=== PATIENT | male | born 1980 | race Caucasian/White ===

== ENCOUNTER 2016-10-21 09:26 | Inpatient (IN) | payer OTHER ==
[~2016-10-21] VITALS: Ht 175.3 cm; Wt 110.5 kg
[2016-10-21] MEDS ORDERED: SOD CHLORIDE 0.9% 1,000 ML IV SCH (12:24)
[2016-10-21 12:25] VITALS: BP 169/97; PULSE 98; RESP 18
[2016-10-21] MEDS ORDERED: NACL 0.9% 3 ML SYG IV SCH (12:30)
[2016-10-21] MEDS ORDERED: ONDANSETRON 4 MG INJ IV PRN ×2 (12:30)
[2016-10-21] MEDS ORDERED: morphine 2 MG INJ IV PRN ×2 (12:30)
[2016-10-21] MEDS ORDERED: ACETAMINOPHEN 650 MG SUPP PR PRN (12:30)
[2016-10-21] MEDS ORDERED: hydrALAzine 20 MG INJ IV PRN (12:30)
--- NOTE | 2016-10-21 14:12 | HP ---
Date/Time of Note Date/Time of Note DATE: 10/21/16 TIME: 13:57 Assessment/Plan VTE Prophylaxis VTE Prophylaxis Intervention: SCD's Lines/Catheters IV C[facility] Type [facility]from [facility]): Peripheral IV Assessment/Plan Chief Complaint/Hosp Course This is a 36-year-old male who was transferred from [facility] for evaluation and further management for worsening abdominal pain concerning for cholecystitis. 1. Right-sided abdominal pain, secondary to acute cholecystitis/ cholelithiasis. Outside hospital CT abdomen/pelvis reviewed. -We will call surgery consult for further evaluation -Patient will be kept n.p.o., start IV fluids, antiemetics, analgesics and broad -spectrum IV antibiotics. -Obtain LFTs and consider MRCP if indicated 2. Leukocytosis likely secondary to #1. -We will continue broad-spectrum antibiotics. Will trend WBC and consider cultures if indicated. 3. Bipolar disorder -Currently patient is very cooperative. Needs to obtain dose of home medications. 4. Obesity -Weight reduction advised -Obtain A1c and fasting lipid panel. Prophylaxis: SCDs/Pepcid Plan: Patient will be admitted to medical surgical floor. He will be kept n.p.o. until surgery evaluation is done. We will follow-up with MRCP findings. Patient will remains full code. Activity as tolerated. We will repeat electrolyte panel as patient had vomited multiple times to assess for any possible imbalance. We will also obtain fasting lipid panel, hemoglobin A1c, and TSH. The rest of the management depend on clinical course, further studies and input from software consultant. Approximately 60 minutes was spent on this history and physical. Case discussed with . Problems: HPI/ROS Admit Date/Time Admit Date/Time Oct 21, 2016 at 12:08 Hx of Present Illness This is a 36-year-old obese male with a past medical history of active smoking, bipolar disorder, anxiety, previous hospitalization in psychiatric unit , who initially presented to [facility] with complaints of worsening right-sided abdominal pain associated with nausea and multiple episodes of nonbilious, nonbloody vomiting. Patient reported start of his symptoms last night after he had lasagna for dinner. He also reported that he had similar episode a month ago and did not seek any medical attention at that time. Patient denied any fever, chills, chest pain, shortness of breath, diarrhea, constipation, dysuria, urgency, upper or lower GI bleed episodes. Patient denied any recent travel or sick contacts. In the outside hospital, his initial vital signs blood pressure 163/78 pulse rate 76, respiratory rate 18 and oxygen saturation 99%. Initial labs at the outside hospital showed WBC 16,700, hemoglobin 15.8, hematocrit 45.3, platelet 335,000, sodium 140, potassium 3.3, chloride 99, BUN 8, creatinine 0.81, and glucose 137. Urine analysis was negative for ketones and leukocyte esterase. Patient had 2+ proteinuria. A CT abdomen from outside hospital showed gallbladder sludge, cholelithiasis with thickened gallbladder wall suggestive of cholecystitis. There was also probably pericholecystic fluid. In the outside hospital ER, patient was given 4 mg morphine, 4 mg Zofran, 1 L normal saline, ceftriaxone 2 g IV piggyback, Flagyl 500 mg IV piggyback and Dilaudid 0.5 mg. Patient was then transferred to [facility] due to insurance purposes. ROS A 12 point review of system was assessed and is negative other than what is mentioned in HPI. PMH/Family/Social Past Medical History See HPI Past Surgical History None Social History Active smoker, who smokes 1 pack per day. Occasional alcohol use. Smoking Status: Current every day smoker Exam/Review of Systems Vital Signs Vitals Vital Signs Date Time Temp Pulse Resp B/P Pulse Ox O2 Delivery O2 Flow Rate FiO2 10/21/16 12:25 99.0 98 18 169/97 95 Room Air Home medications Depakote (dose unknown) Latuda (dose unknown) Exam Exam General: Well developed,adequately built, not in any acute distress . HEENT: Normocephalic, Atraumatic, No laceration or hematoma; Eyes: PEERL, Conjunctiva clear, Anicteric sclera Neck: Supple without any lymphadenopathy, nontender, no JVD, no carotid bruits, trachea midline, no thyromegaly Cardiac: S1, S2 auscultated, regular rhythm and rate, no mumurs or gallop Pulmonary: Normal respiratory effort. Chest clear to auscultation bilaterally, no adventitious breath sounds GI: With diffuse right-sided abdominal pain. Otherwise abdomen obese to inspection. Soft, non tender, non- distended, no masses, no rebound tenderness or guarding. Bowel sounds active on all four quadrants Genitourinary: Deferred Extremities: No cyanosis, clubbing, or edema. Pulses [2+] bilaterally. Full ROM on all four extremities. No focal weakness appreciated. Neurologic: Alert to person, place, time, and situation. Affect appropriate, intact sensation. Skin: Clean,dry, and intact. No ecchymosis, no rashes, or lesions Psych: Negative for suicidal ideation, hallucination, confusion and agitation. Medications Medications Current Medications Hydralazine HCl (Apresoline) 10 mg Q6H PRN IV ELEVATED BLOOD PRESSURE Last administered on 10/21/16 12:50; Admin Dose 10 MG; Start 10/21/16 at 12:30 Morphine Sulfate (morphine) 2 mg Q4H PRN IV PAIN Last administered on 12:57; Admin Dose 2 MG; Start 10/21/16 at 12:30 Ondansetron HCl 4 mg 4 mg Q4H PRN IV NAUSEA AND/OR VOMITING; Start 10/21/16 at 12:30 Sodium Chloride (NS) 1,000 ml @ 75 mls/hr [id number] IV Last administered on 10/21 12:57; Admin Dose 75 MLS/HR; Start 10/21/16 at 12:24 Ondansetron HCl (Zofran Inj) 4 mg Q6H PRN IV NAUSEA AND/OR VOMITING; Start at 12:30 Acetaminophen (Tylenol Supp) 650 mg Q6H PRN [place] PAIN LEVEL 1-3 OR FEVER; Start 10/21/16 at 12:30 Morphine Sulfate (morphine) 2 mg Q4H PRN IV SEVERE PAIN LEVEL 7-10; Start 10/21 at 12:30 Famotidine (Pepcid Iv) 20 mg Q12 IV ; Start 10/21/16 at 21:00 Nicotine 1 patch 1 patch DAILY TRANSDERM ; Start 10/22/16 at 09:00 Piperacillin Sod/ Tazobactam Sod (Zosyn 3.375gm/ 100 ml (Pmx)) 100 ml @ 200 mls /hr Q8 IVPB ; Start 10/21/16 at 14:00 ROBERTA MORRELL NP Oct 21, 2016 14:11
[2016-10-21 14:30] VITALS: BP 152/89; PULSE 80
[2016-10-21 14:46] LABS: ADD SCAN DIFF NO
[2016-10-21 14:49] LABS: ABNORMAL IP MESSAGE 1; HEMATOCRIT 43.8 % (42.0-52.0); HEMOGLOBIN 15.2 g/dl (14.0-18.0); MEAN CORPUSCULAR HEMOGLOBIN 30.8 pg (29.0-33.0); MEAN CORPUSCULAR HGB CONC 34.7 g/dl (32.0-37.0); MEAN CORPUSCULAR VOLUME 88.7 fl (82.0-101.0); MEAN PLATELET VOLUME 9.6 fl (7.4-10.4); PLATELET COUNT 304 10^3/UL (140-415); RED BLOOD COUNT 4.94 10^6/ul (4.70-6.10); RED CELL DISTRIBUTION WIDTH 12.3 % (11.5-14.5); WHITE BLOOD COUNT 25.1 10^3/ul (4.8-10.8)
[2016-10-21 15:07] LABS: CALCIUM 8.6 mg/dl (8.4-10.2); CREATININE 0.57 mg/dl (0.61-1.24); MAGNESIUM 1.3 mg/dl (1.7-2.5); POTASSIUM 3.3 mmol/L (3.5-5.1)
[2016-10-21] MEDS: HYDROmorphONE 1 MG/ML SYG IV PRN ×3 (15:28→23:35)
[2016-10-21] MEDS: PIPER-TAZO 3.375 GM IV (PMX) 100 ML IVPB SCH ×2 (15:28→23:13)
[2016-10-21 15:32] LABS: INR 0.96; PARTIAL THROMBOPLASTIN TIME 32.2 Sec (25.0-35.0); PROTIME 12.8 Sec (12.2-14.2)
--- NOTE | 2016-10-21 15:52 | CONS ---
Date/Time of Note Date/Time of Note DATE: 10/21/16 TIME: 15:47 Assessment/Plan Assessment/Plan Chief Complaint/Hosp Course 36-year-old male with clinical signs and symptoms of acute cholecystitis * This has been confirmed via both an ultrasound and CT scan * Continue n.p.o., IV fluid hydration, pain control, broad-spectrum intravenous antibiotics * Recommend laparoscopic cholecystectomy; possible open as medical necessity definitive treatment to prevent further sequelae of gallstone disease which include, but are not limited to: Gangrenous cholecystitis, choledocholithiasis, gallstone pancreatitis, ascending cholangitis, etc. This was discussed with the patient in full detail along with risks and benefits of both operative and nonoperative management. He understands and agrees to surgical intervention. * Will tentatively schedule for cholecystectomy tomorrow pending medical clearance. Problems: Consultation Date/Type/Reason Admit Date/Time Oct 21, 2016 at 12:08 Date of Consultation: Oct 21, 2016 Type of Consultation: GENERAL SURGERY Reason for Consultation Acute cholecystitis Hx of Present Illness The patient is a obese 36-year-old male who was transferred from [facility] with right upper quadrant pain. He reports that the pain began last night at approximately 9 PM after dinner. It was associated with multiple episodes of nausea and vomiting. He denies any diarrhea/ constipation or fever/chills. He reports having similar episodes of pain in the past which were intermittent in nature and resolved on their own. On arrival to the emergency room at [facility] he was found to have a leukocytosis of approximately 16,000. Both an ultrasound and a CT scan of the abdomen and pelvis which were done showed the presence of gallstones and gallbladder wall thickening. Currently he is resting in bed without any acute distress. However, he is still having right upper quadrant pain requiring IV narcotic pain control. A 14 point review of systems was conducted and was negative except for that was mentioned in HPI Past Medical History Medical History: hypertension, other (Bipolar disorder) Past Surgical History Past Surgical Hx: no surgical history Family History Significant Family History: no pertinent family hx Social History Smoking Status: Current every day smoker Exam/Review of Systems Vital Signs Vitals Vital Signs Date Time Temp Pulse Resp B/P Pulse Ox O2 Delivery O2 Flow Rate FiO2 10/21/16 12:25 99.0 98 18 169/97 95 Room Air Exam GENERAL: Obese, awake, alert, oriented x 3. No acute distress. SKIN: No jaundice. HEENT: PERRLA, EOMI, No Scleral Icterus NECK: Supple without JVD CARDIOVASCULAR: S1S2, regular rate and rhythm. No murmurs appreciated. RESPIRATORY: Clear to auscultation bilaterally. ABDOMEN: Obese, soft, bowel sounds present, nondistended, there is right upper quadrant tenderness to palpation. There is a positive Bazan sign. There is no evidence of diffuse peritonitis. EXTREMITIES: Free range of motion x 4. No cyanosis, edema, or clubbing. NEUROLOGIC: Cranial nerves II-XII are intact. Sensation is intact grossly. Results Result Diagram: 10/21/16 1420 10/21/16 1420 Results 24 hrs Laboratory Tests Test 10/21/16 13:40 10/21/16 14:20 Prothrombin Time 12.8 Prothrombin Time Ratio 1.0 INR International Normalized Ratio 0.96 Activated Partial Thromboplast Time 32.2 White Blood Count 25.1 H Red Blood Count 4.94 Hemoglobin 15.2 Hematocrit 43.8 Mean Corpuscular Volume 88.7 Mean Corpuscular Hemoglobin 30.8 Mean Corpuscular Hemoglobin Concent 34.7 Red Cell Distribution Width 12.3 Platelet Count 304 Mean Platelet Volume 9.6 Sodium Level 138 Potassium Level 3.3 L Chloride Level 94 L Carbon Dioxide Level 27 Anion Gap 20 H Blood Urea Nitrogen 5 L Creatinine 0.57 L Glucose Level 121 Calcium Level 8.6 Magnesium Level 1.3 L Medications Medications Current Medications Hydralazine HCl (Apresoline) 10 mg Q6H PRN IV ELEVATED BLOOD PRESSURE Last administered on 10/21/16 12:50; Admin Dose 10 MG; Start 10/21/16 at 12:30 Ondansetron HCl 4 mg 4 mg Q4H PRN IV NAUSEA AND/OR VOMITING; Start 10/21/16 at 12:30 Sodium Chloride (NS) 1,000 ml @ 75 mls/hr [id number] IV Last administered on 10/21 12:57; Admin Dose 75 MLS/HR; Start 10/21/16 at 12:24 Ondansetron HCl (Zofran Inj) 4 mg Q6H PRN IV NAUSEA AND/OR VOMITING; Start at 12:30 Acetaminophen (Tylenol Supp) 650 mg Q6H PRN [place] PAIN LEVEL 1-3 OR FEVER; Start 10/21/16 at 12:30 Morphine Sulfate (morphine) 2 mg Q4H PRN IV SEVERE PAIN LEVEL 7-10; Start 10/21 at 12:30 Famotidine (Pepcid Iv) 20 mg Q12 IV ; Start 10/21/16 at 21:00 Nicotine 1 patch 1 patch DAILY TRANSDERM ; Start 10/22/16 at 09:00 Piperacillin Sod/ Tazobactam Sod (Zosyn 3.375gm/ 100 ml (Pmx)) 100 ml @ 200 mls /hr Q8 IVPB Last administered on 10/21/16 15:28; Admin Dose 200 MLS/HR; Start 10/21/16 at 14:00 Hydromorphone HCl (Dilaudid) 0.5 mg Q4H PRN IV PAIN Last administered on 15:28; Admin Dose 0.5 MG; Start 10/21/16 at 14:00 HILARY CANADA MD Oct 21, 2016 15:52
--- NOTE | 2016-10-21 15:56 | QN ---
Documentation Comment Preoperative medical clearance Given patient's medical condition, patient is at a low to intermediate risk for any untoward medical events for surgery. However, benefit likely outweigh risks and recommended to have surgical intervention for acute cholecystitis. ROBERTA MORRELL V. SENIOR ORACLE DBA Oct 21, 2016 15:56
[2016-10-21 16:05] LABS: LYMPHOCYTES # 0.8 10^3/ul (0.8-2.9); MONOCYTE # 0.5 10^3/ul (0.3-0.9); NEUTROPHIL # 23.8 10^3/ul (1.6-7.5)
[2016-10-21 17:14] LABS: ALBUMIN 4.1 g/dl (3.3-4.9); BILIRUBIN,INDIRECT 0.5 mg/dl (0-1.1); BILIRUBIN,TOTAL 0.5 mg/dl (0.2-1.3); TOTAL PROTEIN 7.9 g/dl (6.1-8.1)
--- NOTE | 2016-10-21 17:38 | RADRPT ---
Vent Rate: 91 bpm RR Interval: 0 msec WI Interval: 122 msec QRS Duration: 84 msec QT Interval: 374 msec QTC Interval: 460 msec P-R-T [place]: 64 - 87 - 57 degrees Normal sinus rhythm ST abnormality, possible digitalis effect Abnormal ECG Electronically Signed By: Dennis Padron [id number]
--- NOTE | 2016-10-21 17:54 | RADRPT ---
PROCEDURE: XR Chest. CLINICAL INDICATION: Preoperative. TECHNIQUE: Single frontal view. COMPARISON: None. FINDINGS: The lungs are clear. The heart size is normal. There is no pleural effusion. There is no pneumothorax. IMPRESSION: 1. Normal chest radiograph. RPTAT: QQ .Elias Lacey MD, Date Time Electronically viewed and signed by .Elias Lacey MD, on 10/21/2016 17:54 .R/
[2016-10-21] MEDS ORDERED: MAGNESIUM SULFATE 3 GM in SOD CHLORIDE 0.9% 100 ML IVPB ONE (19:00)
[2016-10-21] MEDS ORDERED: POTASSIUM CHLORIDE 250 ML IVPB ONE (19:00)
[2016-10-21 19:27] VITALS: BP 151/95; RESP 20
[2016-10-21] MEDS: NS + KCL 20 MEQ 1,000 ML IV SCH (20:07)
[2016-10-21] MEDS: NICOTINE (7 MG/24 HR) PATCH TRANSDERM SCH (20:07)
[2016-10-21] MEDS: FAMOTIDINE 20 MG INJ IV SCH (23:13)
[2016-10-21 23:49] LABS: ADD UMIC YES; UR ASCORBIC ACID NEGATIVE (NEGATIVE); UR BILIRUBIN (Dip) NEGATIVE (NEGATIVE); UR BLOOD (Dip) 1+ mg/dL (NEGATIVE); UR CLARITY CLEAR (CLEAR); UR COLOR YELLOW (YELLOW); UR GLUCOSE (Dip) NEGATIVE (NEGATIVE); UR KETONES (Dip) NEGATIVE (NEGATIVE); UR LEUKOCYTE ESTERASE (Dip) NEGATIVE Leu/ul (NEGATIVE); UR MUCUS FEW /HPF (NONE SEEN); UR NITRITE (Dip) NEGATIVE (NEGATIVE); UR RBC 7 /HPF (0-5); UR TOTAL PROTEIN (Dip) 1+ mg/dl (NEGATIVE); UR UROBILINOGEN (Dip) 1+ mg/dL (NEGATIVE)
[2016-10-21 23:54] VITALS: BP 154/87; RESP 18
[2016-10-22] VITALS (22 sets, daily range): BP systolic 113–169; BP diastolic 72–95; PULSE 100–120; RESP 12–24; Ht 175.3 cm; Wt 110.5 kg
[2016-10-22] MEDS ORDERED: LORAZEPAM 2 MG INJ IV PRN (02:30)
[2016-10-22] MEDS: NS + KCL 20 MEQ 1,000 ML IV SCH ×3 (03:00→19:00)
[2016-10-22] MEDS: HYDROmorphONE 1 MG/ML SYG IV PRN ×3 (05:04→23:24)
[2016-10-22 05:47] LABS: ADD SCAN DIFF NO
[2016-10-22 05:51] LABS: ABNORMAL IP MESSAGE 1; HEMATOCRIT 44.3 % (42.0-52.0); HEMOGLOBIN 15.5 g/dl (14.0-18.0); MEAN CORPUSCULAR HEMOGLOBIN 31.4 pg (29.0-33.0); MEAN CORPUSCULAR VOLUME 89.7 fl (82.0-101.0); MEAN PLATELET VOLUME 9.8 fl (7.4-10.4); PLATELET COUNT 336 10^3/UL (140-415); RED BLOOD COUNT 4.94 10^6/ul (4.70-6.10); RED CELL DISTRIBUTION WIDTH 12.2 % (11.5-14.5)
[2016-10-22 06:16] LABS: ALBUMIN 3.9 g/dl (3.3-4.9); BILIRUBIN,INDIRECT 1.1 mg/dl (0-1.1); BILIRUBIN,TOTAL 1.1 mg/dl (0.2-1.3); CALCIUM 8.8 mg/dl (8.4-10.2); CREATININE 0.66 mg/dl (0.61-1.24); INR 1.03; POTASSIUM 4.3 mmol/L (3.5-5.1); PROTIME 13.5 Sec (12.2-14.2); PT RATIO 1.1; TOTAL PROTEIN 7.8 g/dl (6.1-8.1)
[2016-10-22 06:19] LABS: CHOL/HDL RATIO 3.3 RATIO
[2016-10-22] MEDS: PIPER-TAZO 3.375 GM IV (PMX) 100 ML IVPB SCH ×3 (06:43→21:21)
[2016-10-22 06:59] LABS: CALCIUM 8.8 mg/dl (8.4-10.2); CREATININE 0.64 mg/dl (0.61-1.24); MAGNESIUM 2.2 mg/dl (1.7-2.5); PHOSPHORUS 2.8 mg/dl (2.5-4.9); POTASSIUM 4.7 mmol/L (3.5-5.1); THYROID STIMULATING HORMONE 1.12 MIU/L (0.465-4.680)
[2016-10-22] MEDS ORDERED: NICOTINE (7 MG/24 HR) PATCH TRANSDERM SCH (09:00)
[2016-10-22] MEDS: FAMOTIDINE 20 MG INJ IV SCH ×2 (09:33→21:21)
[2016-10-22] MEDS: NICOTINE (7 MG/24 HR) PATCH TRANSDERM SCH (09:34)
--- NOTE | 2016-10-22 09:52 | PN ---
Date/Time of Note Date/Time of Note DATE: 10/22/16 TIME: 09:48 Assessment/Plan VTE Prophylaxis VTE Prophylaxis Intervention: ambulation, SCD's Lines/Catheters IV C[facility]ter Type (from [facility]): Peripheral IV Urinary Cath still in place: No Assessment/Plan Chief Complaint/Hosp Course 1. Right-sided abdominal pain, secondary to cholecystitis/cholelithiasis. -Surgery on board and plan for cholecystectomy today -Continue n.p.o., IV fluids, antiemetics, analgesics and broad-spectrum IV antibiotics. 2. Leukocytosis, this is likely secondary to #1. Now trending up. -Continue antibiotics -Obtain pancultures. 3. Bipolar disorder -Currently patient is very cooperative. Needs to obtain dose of home medications. 4. Obesity. A1c and lipid panel stable -Weight reduction advised 5. Hypokalemia with hypomagnesemia. This was repleted and is stable now. Prophylaxis: SCDs/Pepcid Plan: Patient for surgical intervention today. We will follow-up with surgery recommendation postoperatively. Case discussed with . Problems: Subjective 24 Hr Interval Summary Free Text/Dictation Patient lying in bed comfortably. Pain is improved today remains afebrile. For surgical intervention today. Exam/Review of Systems Vital Signs Vitals Vital Signs Date Time Temp Pulse Resp B/P Pulse Ox O2 Delivery O2 Flow Rate FiO2 10/22/16 08:18 98.9 111 20 150/91 94 10/21/16 12:25 Room Air Intake and Output 10/21/16 10/21/16 10/22/16 15:00 23:00 07:00 Intake Total 400 ml 706 ml Output Total 600 ml 1100 ml Balance -200 ml -394 ml Exam General: Well developed,adequately built, not in any acute distress . HEENT: Normocephalic, Atraumatic, No laceration or hematoma; Eyes: PEERL, Conjunctiva clear, Anicteric sclera Neck: Supple without any lymphadenopathy, nontender, no JVD, no carotid bruits, trachea midline, no thyromegaly Cardiac: S1, S2 auscultated, regular rhythm and rate, no mumurs or gallop Pulmonary: Normal respiratory effort. Chest clear to auscultation bilaterally, no adventitious breath sounds GI: With diffuse right-sided abdominal pain. Otherwise abdomen obese to inspection. Soft, non tender, non- distended, no masses, no rebound tenderness or guarding. Bowel sounds active on all four quadrants Genitourinary: Deferred Extremities: No cyanosis, clubbing, or edema. Pulses [2+] bilaterally. Full ROM on all four extremities. No focal weakness appreciated. Neurologic: Alert to person, place, time, and situation. Affect appropriate, intact sensation. Skin: Clean,dry, and intact. No ecchymosis, no rashes, or lesions Psych: Negative for suicidal ideation, hallucination, confusion and agitation. Results Result Diagram: 10/22/16 0431 10/22/16 0432 Results 24 hrs Laboratory Tests Test 10/21/16 13:40 10/21/16 14:20 10/21/16 23:05 10/22/16 04:31 Prothrombin Time 12.8 13.5 Prothrombin Time Ratio 1.0 1.1 INR International Normalized Ratio 0.96 1.03 Activated Partial Thromboplast Time 32.2 White Blood Count 25.1 H 32.7 #H Red Blood Count 4.94 4.94 Hemoglobin 15.2 15.5 Hematocrit 43.8 44.3 Mean Corpuscular Volume 88.7 89.7 Mean Corpuscular Hemoglobin 30.8 31.4 Mean Corpuscular Hemoglobin Concent 34.7 35.0 Red Cell Distribution Width 12.3 12.2 Platelet Count 304 336 Mean Platelet Volume 9.6 9.8 Neutrophils % 95.0 H Lymphocytes % 3.0 L Monocytes % 2.0 Neutrophils # 23.8 H Lymphocytes # 0.8 Monocytes # 0.5 Sodium Level 138 137 Potassium Level 3.3 L 4.3 Chloride Level 94 L 97 Carbon Dioxide Level 27 25 Anion Gap 20 H 19 H Blood Urea Nitrogen 5 L 6 L Creatinine 0.57 L 0.66 Glucose Level 121 113 Calcium Level 8.6 8.8 Magnesium Level 1.3 L Total Bilirubin 0.5 1.1 Direct Bilirubin 0.00 0.00 Indirect Bilirubin 0.5 1.1 Aspartate Amino Transf (AST/SGOT) 37 86 #H Alanine Aminotransferase (ALT/SGPT) 55 86 H Alkaline Phosphatase 90 102 Total Protein 7.9 7.8 Albumin 4.1 3.9 Urine Color YELLOW Urine Clarity CLEAR Urine pH 7.0 Urine Specific Bad[place] 1.020 Urine Ketones NEGATIVE Urine Nitrite NEGATIVE Urine Bilirubin NEGATIVE Urine Urobilinogen 1+ H Urine Leukocyte Esterase NEGATIVE Urine Microscopic RBC 7 H Urine Microscopic WBC 1 Urine Mucus FEW A Urine Hemoglobin 1+ H Urine Glucose NEGATIVE Urine Total Protein 1+ H Globulin 3.90 H Albumin/Globulin Ratio 1.00 Test 10/22/16 04:32 Sodium Level 138 Potassium Level 4.7 Chloride Level 97 Carbon Dioxide Level 24 Anion Gap 22 H Blood Urea Nitrogen 6 L Creatinine 0.64 Glucose Level 102 Hemoglobin A1c 5.9 Calcium Level 8.8 Phosphorus Level 2.8 Magnesium Level 2.2 Triglycerides Level 56 Cholesterol Level 156 LDL Cholesterol, Calculated 99 HDL Cholesterol 46 Cholesterol/HDL Ratio 3.3 Thyroid Stimulating Hormone (TSH) 1.120 Medications Medications Current Medications Hydralazine HCl (Apresoline) 10 mg Q6H PRN IV ELEVATED BLOOD PRESSURE Last administered on 10/21/16 12:50; Admin Dose 10 MG; Start 10/21/16 at 12:30 Ondansetron HCl (Zofran Inj) 4 mg Q4H PRN IV NAUSEA AND/OR VOMITING; Start at 12:30 Acetaminophen (Tylenol Supp) 650 mg Q6H PRN [place] PAIN LEVEL 1-3 OR FEVER; Start 10/21/16 at 12:30 Morphine Sulfate (morphine) 2 mg Q4H PRN IV SEVERE PAIN LEVEL 7-10; Start 10/21 at 12:30 Famotidine (Pepcid Iv) 20 mg Q12 IV Last administered on 10/22/16 09:33; Admin Dose 20 MG; Start 10/21/16 at 21:00 Hydromorphone HCl 0.5 mg 0.5 mg Q4H PRN IV PAIN Last administered on 10/22/16 09:34; Admin Dose 0.5 MG; Start 10/21/16 at 14:00 Potassium Chloride/Sodium Chloride (NS-KCl 20 Meq) 1,000 ml @ 125 mls/hr Q8H IV Last administered on 10/21/16 20:07; Admin Dose 125 MLS/HR; Start 10/21/16 at 19:00 Nicotine (Nicoderm 7 Mg/ 24 Hr) 1 patch DAILY TRANSDERM Last administered on 09:34; Admin Dose 1 PATCH; Start 10/21/16 at 20:00 Lorazepam 2 mg 2 mg ONCE PRN IV INSOMNIA Last administered on 10/22/16 02:24; Admin Dose 2 MG; Start 10/22/16 at 02:30; Stop 10/23/16 at 02:29 Piperacillin Sod/ Tazobactam Sod (Zosyn 3.375gm/ 100 ml (Pmx)) 100 ml @ 200 mls /hr Q6 IVPB ; Start 10/22/16 at 12:00 ROBERTA MORRELL NP Oct 22, 2016 09:52 Admin Dose 2 MG; Start 10/22/16 at 02:30; Stop 10/23/16 at 02:29 Piperacillin Sod/ Tazobactam Sod (Zosyn 3.375gm/ 100 ml (Pmx)) 100 ml @ 200 mls /hr Q6 IVPB ; Start 10/22/16 at 12:00 ROBERTA MORRELL NP Oct 22, 2016 09:52
[2016-10-22 10:17] LABS: LYMPHOCYTES # 0.3 10^3/ul (0.8-2.9); MONOCYTE # 2.6 10^3/ul (0.3-0.9); NEUTROPHIL # 29.4 10^3/ul (1.6-7.5)
[2016-10-22] MEDS ORDERED: BUPIVACAINE 0.25%/EPI (SDV) 30 ML INJ ONE (16:15)
[2016-10-22] MEDS ORDERED: ROCURONIUM 50 MG INJ ONE ×2 (16:17→17:09)
[2016-10-22] MEDS ORDERED: PROPOFOL 20 ML ONE (16:17)
[2016-10-22] MEDS ORDERED: ONDANSETRON 4 MG INJ ONE (16:17)
[2016-10-22] MEDS ORDERED: MIDAZOLAM 1 MG/ML 2 ML INJ ONE (16:18)
[2016-10-22] MEDS ORDERED: FENTAnyl 50 MCG/ML VIAL ONE (16:41)
--- NOTE | 2016-10-22 16:44 | HPN ---
Date/Time of Note Date/Time of Note DATE: 10/22/16 TIME: 16:44 Interval H&P Admission Note Pt. seen H&P reviewed: No system changes HILARY CANADA MD Oct 22, 2016 16:44
[2016-10-22] MEDS ORDERED: HYDROmorphONE 2 MG/ML SYG ONE (16:50)
[2016-10-22] MEDS ORDERED: HYDROmorphONE (0.2 MG/ML) 10ML SYG IV PRN ×2 (17:00)
[2016-10-22] MEDS ORDERED: METOCLOPRAMIDE 10 MG INJ IV PRN (17:00)
[2016-10-22] MEDS ORDERED: MEPERIDINE 25 MG INJ IV PRN (17:00)
[2016-10-22] MEDS ORDERED: DIPHENHYDRAMINE 50 MG INJ IV PRN (17:00)
[2016-10-22] MEDS ORDERED: ONDANSETRON 4 MG INJ IV PRN ×2 (17:00→19:30)
[2016-10-22] MEDS ORDERED: ESMOLOL 10 ML ONE (17:08)
[2016-10-22] MEDS ORDERED: METOPROLOL 5 MG INJ ONE (17:15)
[2016-10-22] MEDS ORDERED: ROPIVACAINE 0.5 % 30 ML VIAL ONE (18:53)
[2016-10-22] MEDS ORDERED: NEOSTIGMINE 3 MG/3 ML SYRINGE ONE (19:02)
[2016-10-22] MEDS ORDERED: GLYCOPYRROLATE 0.4 MG INJ ONE (19:02)
--- NOTE | 2016-10-22 19:26 | OPR ---
Date/Time of Note Date/Time of Note DATE: 10/22/16 TIME: 19:13 Operative Report Procedure Date: Oct 22, 2016 Preoperative Diagnosis Acute cholecystitis Postoperative Diagnosis 1. Gangrenous cholecystitis 2. Pericholecystic abscess 3. Peritoneal adhesions Operation Performed 1. Laparoscopic cholecystectomy 2. Drainage of pericholecystic abscess 3. Laparoscopic lysis of adhesions 4. Placement of drains 5. MODIFIER 22 Surgeon: HILARY CANADA MD Anesthesia: general Anesthesiologist: BIENVENIDO SEVILLA MD Estimated Blood Loss: 50 - 100 ml's Specimens Gallbladder Tubes/Drains 19 Korean round Jorge drain Complications: None Pt Condition Post Procedure: stable Disposition: PACU Indications The patient is a obese 36-year-old male who presented with right upper quadrant abdominal pain. The patient had clinical signs and symptoms of acute cholecystitis which was confirmed via an ultrasound and a CT scan. He was admitted, started on broad-spectrum intravenous antibiotics, IV fluids and pain control. The patient was scheduled for laparoscopic cholecystectomy; possible open as definitive treatment to prevent further sequelae of gallstone disease which include but are not limited to: Gangrenous cholecystitis, choledocholithiasis, gallstone pancreatitis, ascending cholangitis, etc. All risks and benefits of the procedure including but not limited to: Wound infection, excessive bleeding, common bile duct injury, postoperative biliary leak, retained common bile duct stone, injury to intra-abdominal organs, conversion to open procedure, possible need for subsequent surgeries, etc. were all explained to the patient in full detail. She fully understood and wished to proceed with the procedure. Informed consent was therefore obtained. Operative\Procedure Findings Gangrenous cholecystitis. Pericholecystic abscess. Peritoneal adhesions. Significant inflammation and acute adhesions. This procedure required an extensive amount of technical skill and time which was in excess of that which is usual and customary of the procedure of this type. Hence, modifier 22 should be applied. Procedure Description The patient was brought to the operating room and placed supine on the operating table. Bilateral sequential compression devices were placed on both lower extremities. The patient had been maintained on broad-spectrum intravenous antibiotics while an inpatient on the floor. After the induction of smooth general endotracheal anesthesia the patient's abdomen was prepped and draped in the standard surgical fashion. After performance of the surgical timeout a 5 mm incision was made in the superior umbilicus and a Veress needle was used to access the intra-abdominal cavity atraumatically. Pneumoperitoneum was then obtained and the Veress needle was exchanged for a 5 mm trocar through which a 5 mm laparoscope was placed. Three further working ports were then placed a 12 mm port in the sub-xiphoid region and two 5 mm ports in the right upper quadrant. Diagnostic laparoscopy showed peritoneal adhesions in the area of the right upper quadrant port sites. These adhesions were then taken down using laparoscopic selina and hook electrocautery in order to be able to place our right upper quadrant ports. All port sites were anesthetized with 0.25% Marcaine with epinephrine prior to incision. Diagnostic laparoscopy showed the omentum to be draped over a massively distended gallbladder. The omentum was swept off using blunt dissection. A gangrenous gallbladder was identified. Using a decompressing needle inserted through the lateralmost port site approximately 90 cc of dark bile was aspirated from the gallbladder. Cultures were sent for microbiological analysis. This enabled the gallbladder to be grasped using atraumatic graspers. Superior retraction was limited due to hepatomegaly and the patient's morbidly obese body habitus. Attempts were also made to grasp the gallbladder near the infundibulum to retract laterally, however, this was also difficult. Visualization was difficult. Therefore, the 0 scope was exchanged for a 30 laparoscope. This improved visualization. There was significant inflammatory adhesions in the area of the gallbladder neck. Therefore, dome down dissection was performed using the harmonic scalpel to be able to better mobilize the gallbladder. There is gangrenous tissue posteriorly. Posterior pericholecystic abscess was encountered and drained. There was some blood loss encountered from a bleeding vessel in the liver bed. This was controlled using the harmonic scalpel. Dome down dissection was completed towards the infundibulum. This enabled the gallbladder to be grasped a little bit better using atraumatic graspers and retracted superiorly and laterally exposing the area of Saldivar's pouch. Dissection was begun in this area using a combination of blunt dissection and harmonic scalpel. After much tedious dissection which was technically difficult and in excess of that which is usual and customary for procedure of this type, the cystic duct was finally identified as it entered straight into the neck of the gallbladder. It was dissected free of surrounding tissues and transected using laparoscopic GI stapler. The cystic artery was likely transected with the harmonic scalpel during the course of posterior dissection. The remaining attachments of the gallbladder to the liver bed were then dissected using the harmonic scalpel. Once completely free the gallbladder was placed in an Endo Catch bag and withdrawn through the subxiphoid port site which had to be enlarged approximately twice its size to accommodate the thick-walled gallbladder and the large stones contained within it. Once extracted the gallbladder was passed off the field as specimen. Hemostasis was then inspected for and noted to be adequate. The abdomen was then irrigated with several liters of warm normal saline and the irrigant returned crystal clear. To aid in hemostasis fibrillar was placed in the gallbladder fossa. Due to the significant inflammation and gangrenous nature of the cholecystitis it was elected to leave a 19 [place] round Jorge drain in the area of the gallbladder fossa. This was brought out through the lateralmost port site and secured in place using a 2-0 nylon suture and hooked up to bulb suction. The fascia of the subxiphoid port site was then reapproximated using an endo-close device and interrupted 0 Vicryl sutures in [id number] fashion. Pneumoperitoneum was then released and all remaining trochars were withdrawn under direct vision. The subcutaneous tissues were irrigated with more warm normal saline and further local anesthesia was applied around the skin of the incision sites. The skin was then reapproximated using skin dago. The incisions were cleaned and sterile dressings were applied to the incisions and the patient was awoken from anesthesia and transported to the recovery room in stable condition. All counts were correct at the end of the case x 2. Once again, this procedure required a degree of technical skill, time and effort which was in excess of that which is usual and customary for procedure of this type. Modifier 22 should therefore be applied. HILARY CANADA MD Oct 22, 2016 19:25
[2016-10-22] MEDS ORDERED: ACETAMINOPHEN 325 MG TAB PO PRN (19:30)
[2016-10-22] MEDS ORDERED: HYDROmorphONE 1 MG/ML SYG IV PRN (19:30)
[2016-10-22] MEDS ORDERED: HYDROCODONE/APAP (5/325) TAB PO PRN (19:30)
[2016-10-22] MEDS ORDERED: LABETALOL HCL 20MG INJ ONE (19:35)
[2016-10-22] MEDS ORDERED: LABETALOL HCL 20MG INJ IV ONE (20:00)
[2016-10-22] MEDS: HYDROmorphONE (0.2 MG/ML) 10ML SYG IV PRN ×2 (20:09→20:16)
[2016-10-22] MEDS: DOCUSATE SODIUM 100 MG CAP PO SCH (21:00)
[2016-10-22] MEDS: ZOLPIDEM 5 MG TAB PO PRN (22:33)
[2016-10-23 00:45] VITALS: BP 129/76; PULSE 107; RESP 19
[2016-10-23] MEDS: HYDROmorphONE 1 MG/ML SYG IV PRN ×2 (02:40→13:22)
[2016-10-23 04:01] VITALS: BP 124/70; PULSE 98; RESP 18
[2016-10-23] MEDS: HYDROCODONE/APAP (10/325) TAB PO PRN ×3 (05:03→20:08)
[2016-10-23] MEDS: NS + KCL 20 MEQ 1,000 ML IV SCH ×3 (05:03→21:14)
[2016-10-23 05:25] LABS: ADD SCAN DIFF NO
[2016-10-23 05:26] LABS: ABNORMAL IP MESSAGE 1; BASOPHILS % 0.2 % (0.0-2.0); EOSINOPHILS % 0.1 % (0.0-7.0); HEMOGLOBIN 12.4 g/dl (14.0-18.0); LYMPHOCYTES # 2.4 10^3/ul (0.8-2.9); LYMPHOCYTES % 13.5 % (15.0-51.0); MEAN CORPUSCULAR HEMOGLOBIN 30.9 pg (29.0-33.0); MEAN CORPUSCULAR HGB CONC 33.5 g/dl (32.0-37.0); MEAN CORPUSCULAR VOLUME 92.3 fl (82.0-101.0); MEAN PLATELET VOLUME 9.8 fl (7.4-10.4); MONOCYTE # 1.5 10^3/ul (0.3-0.9); MONOCYTES % 8.4 % (0.0-11.0); NEUTROPHIL # 13.9 10^3/ul (1.6-7.5); NEUTROPHILS % 77.1 % (39.0-77.0); PLATELET COUNT 286 10^3/UL (140-415); RED BLOOD COUNT 4.01 10^6/ul (4.70-6.10); RED CELL DISTRIBUTION WIDTH 12.8 % (11.5-14.5)
[2016-10-23] MEDS: PIPER-TAZO 3.375 GM IV (PMX) 100 ML IVPB SCH ×5 (05:49→23:11)
[2016-10-23 06:00] LABS: ALBUMIN 3.1 g/dl (3.3-4.9); ALBUMIN/GLOBULIN RATIO 0.91; BILIRUBIN,INDIRECT 0.8 mg/dl (0-1.1); BILIRUBIN,TOTAL 0.8 mg/dl (0.2-1.3); CALCIUM 7.8 mg/dl (8.4-10.2); CREATININE 0.8 mg/dl (0.61-1.24); POTASSIUM 4.1 mmol/L (3.5-5.1); TOTAL PROTEIN 6.5 g/dl (6.1-8.1)
[2016-10-23 08:07] VITALS: BP 117/76; RESP 20
[2016-10-23] MEDS: DOCUSATE SODIUM 100 MG CAP PO SCH ×2 (08:44→20:07)
[2016-10-23] MEDS: NICOTINE (7 MG/24 HR) PATCH TRANSDERM SCH (08:44)
[2016-10-23] MEDS: FAMOTIDINE 20 MG INJ IV SCH ×2 (08:44→20:08)
--- NOTE | 2016-10-23 09:52 | PN ---
Date/Time of Note Date/Time of Note DATE: 10/23/16 TIME: 09:47 Assessment/Plan VTE Prophylaxis VTE Prophylaxis Intervention: ambulation, SCD's Lines/Catheters IV Catheter Type (from Nrs): Peripheral IV Urinary Cath still in place: No Assessment/Plan Chief Complaint/Hosp Course 1. Right-sided abdominal pain, secondary to gangrenous cholecystitis. -Status post lap ramy with drain placed on 10/22/2069 -Continue IV fluids, antiemetics, analgesics and broad-spectrum IV antibiotics. -Diet as tolerated 2. Leukocytosis, this is likely secondary to #1. Improving. -Continue antibiotics -Await cultures. 3. Bipolar disorder -Currently patient is very cooperative. Needs to obtain dose of home medications. 4. Obesity. A1c and lipid panel stable -Weight reduction advised Prophylaxis: SCDs/Pepcid Plan: Postoperative management per surgery team. Discharge planning once cleared from surgery standpoint. Case discussed with . Problems: Subjective 24 Hr Interval Summary Free Text/Dictation Patient sitting up in chair, denies chest pain, shortness of breath, fever, chills. With improved pain status. Exam/Review of Systems Vital Signs Vitals Vital Signs Date Time Temp Pulse Resp B/P Pulse Ox O2 Delivery O2 Flow Rate FiO2 10/23/16 08:07 98.4 95 20 117/76 93 10/23/16 04:01 Room Air 10/23/16 00:45 2.0 Intake and Output 10/22/16 10/22/16 10/23/16 15:00 23:00 07:00 Intake Total 2450 ml 1460 ml Output Total 135 ml 920 ml Balance 2315 ml 540 ml Exam General: Obese male not in any acute distress . HEENT: Normocephalic, Atraumatic, No laceration or hematoma; Eyes: PEERL, Conjunctiva clear, Anicteric sclera Neck: Supple without any lymphadenopathy, nontender, no JVD, no carotid bruits, trachea midline, no thyromegaly Cardiac: S1, S2 auscultated, regular rhythm and rate, no mumurs or gallop Pulmonary: Normal respiratory effort. Chest clear to auscultation bilaterally, no adventitious breath sounds GI: Laparoscopic incision site intact. WALLACE draining dark sanguinous in minimal amount. . Soft, non tender, non- distended, no masses, no rebound tenderness or guarding. Bowel sounds active on all four quadrants Genitourinary: Deferred Extremities: No cyanosis, clubbing, or edema. Pulses [2+] bilaterally. Full ROM on all four extremities. No focal weakness appreciated. Neurologic: Alert to person, place, time, and situation. Affect appropriate, intact sensation. Skin: Clean,dry, and intact. No ecchymosis, no rashes, or lesions Psych: Negative for suicidal ideation, hallucination, confusion and agitation. Results Result Diagram: 10/23/1644710/23/16447 Results 24 hrs Laboratory Tests Test 10/23/16 04:48 White Blood Count 18.0 #H Red Blood Count 4.01 L Hemoglobin 12.4 L Hematocrit 37.0 L Mean Corpuscular Volume 92.3 Mean Corpuscular Hemoglobin 30.9 Mean Corpuscular Hemoglobin Concent 33.5 Red Cell Distribution Width 12.8 Platelet Count 286 Mean Platelet Volume 9.8 Neutrophils % 77.1 H Lymphocytes % 13.5 L Monocytes % 8.4 Eosinophils % 0.1 Basophils % 0.2 Nucleated Red Blood Cells % 0.0 Neutrophils # 13.9 H Lymphocytes # 2.4 Monocytes # 1.5 H Eosinophils # 0.0 Basophils # 0.0 Nucleated Red Blood Cells # 0.0 Sodium Level 138 Potassium Level 4.1 Chloride Level 102 Carbon Dioxide Level 23 Anion Gap 17 H Blood Urea Nitrogen 10 Creatinine 0.80 Glucose Level 96 Calcium Level 7.8 L Total Bilirubin 0.8 Direct Bilirubin 0.00 Indirect Bilirubin 0.8 Aspartate Amino Transf (AST/SGOT) 122 H Alanine Aminotransferase (ALT/SGPT) 195 H Alkaline Phosphatase 131 H Total Protein 6.5 # Albumin 3.1 L Globulin 3.40 H Albumin/Globulin Ratio 0.91 Medications Medications Current Medications Hydralazine HCl (Apresoline) 10 mg Q6H PRN IV ELEVATED BLOOD PRESSURE Last administered on 10/21/16t 12:50; Admin Dose 10 MG; Start 10/21/16 at 12:30 Ondansetron HCl (Zofran Inj) 4 mg Q4H PRN IV NAUSEA AND/OR VOMITING; Start at 12:30 Acetaminophen (Tylenol Supp) [address] PAIN LEVEL 1-3 OR FEVER; Start 10/21/16 at 12:30 Morphine Sulfate (morphine) 2 mg Q4H PRN IV SEVERE PAIN LEVEL 7-10; Start 10/21 at 12:30 Famotidine (Pepcid Iv) 20 mg Q12 IV Last administered on 10/23/16 08:44; Admin Dose 20 MG; Start 10/21/16 at 21:00 Hydromorphone HCl 0.5 mg 0.5 mg Q4H PRN IV PAIN Last administered on 10/23/16 02:40; Admin Dose 0.5 MG; Start 10/21/16 at 14:00 Potassium Chloride/Sodium Chloride (NS-KCl 20 Meq) 1,000 ml @ 125 mls/hr Q8H IV Last administered on 10/23/16 05:03; Admin Dose 125 MLS/HR; Start 10/21/16 at 19:00 Nicotine 1 patch 1 patch DAILY TRANSDERM Last administered on 10/23/16 08:44; Admin Dose 1 PATCH; Start 10/21/16 at 20:00 Piperacillin Sod/ Tazobactam Sod (Zosyn 3.375gm/ 100 ml (Pmx)) 100 ml @ 200 mls /hr Q6 IVPB Last administered on 10/23/16 05:49; Admin Dose 200 MLS/HR; Start 10/22/16 at 12:00 Hydromorphone HCl (Dilaudid) 1 mg Q4 PRN IV PAIN LEVEL 6-10 Last administered on 10/23/16 06:18; Admin Dose 1 MG; Start 10/22/16 at 19:30 Acetaminophen/ Hydrocodone Bitart ([place] (5/325)) 1 tab Q6H PRN PO PAIN LEVEL 6 -10; Start 10/22/16 at 19:30 Acetaminophen/ Hydrocodone Bitart ([place] (10/325)) 1 tab Q6H PRN PO PAIN Last administered on 10/23/16 05:03; Admin Dose 1 TAB; Start 10/22/16 at 19:30 Acetaminophen (Tylenol Tab) 650 mg Q6H PRN PO PAIN AND OR ELEVATED TEMP; Start 10/22/16 at 19:30 Ondansetron HCl (Zofran Inj) 4 mg Q6H PRN IV NAUSEA AND/OR VOMITING; Start at 19:30 Docusate Sodium (Colace) 100 mg BID PO Last administered on 10/23/16 08:44; Admin Dose 100 MG; Start 10/22/16 at 21:00 Zolpidem Tartrate (Ambien) 10 mg HS PRN PO INSOMNIA Last administered on 22:33; Admin Dose 10 MG; Start 10/22/16 at 22:00 ROBERTA MORRELL NP Oct 23, 2016 09:52
--- NOTE | 2016-10-23 10:07 | PN ---
Date/Time of Note Date/Time of Note DATE: 10/23/16 TIME: 10:04 Assessment/Plan Lines/Catheters IV Catheter Type (from Nrs): Peripheral IV Gomez in Place (from Nrsg): No Assessment/Plan Assessment/Plan 36-year-old male with gangrenous cholecystitis status post laparoscopic cholecystectomy and drain placement postop day #1 * Continue broad-spectrum intravenous antibiotics * Pain control, IV fluid hydration * Continue drain * Out of bed/incentive spirometry * Monitor labs * Physical therapy * Advance diet Subjective 24 Hr Interval Summary Feels okay. Afebrile. Drain output 55 cc dark old blood. Exam/Review of Systems Vital Signs Vitals Vital Signs Date Time Temp Pulse Resp B/P Pulse Ox O2 Delivery O2 Flow Rate FiO2 10/23/16 08:07 98.4 95 20 117/76 93 10/23/16 04:01 Room Air 10/23/16 00:45 2.0 Intake and Output 10/22/16 10/22/16 10/23/16 14:59 22:59 06:59 Intake Total 2450 ml 1460 ml Output Total 105 ml 950 ml Balance 2345 ml 510 ml Exam Free Text/Dictation GENERAL: Obese, awake, alert, oriented x 3. No acute distress. SKIN: No jaundice. HEENT: PERRLA, EOMI, No Scleral Icterus CARDIOVASCULAR: S1S2, regular rate and rhythm. No murmurs appreciated. RESPIRATORY: Clear to auscultation bilaterally. ABDOMEN: Obese, soft, bowel sounds present, appropriate incisional tenderness to palpation INCISIONS: Dressings clean, dry, intact EXTREMITIES: Free range of motion x 4. No cyanosis, edema, or clubbing. Results Result Diagram: 10/23/16 0448 10/23/16 0448 HILARY CANADA MD Oct 23, 2016 10:06
[2016-10-23 10:47] LABS: WHITE BLOOD COUNT 32.7 10^3/ul (4.8-10.8)
[2016-10-23 19:25] VITALS: BP 157/93; RESP 18
[2016-10-23] MEDS: ZOLPIDEM 5 MG TAB PO PRN (23:11)
[2016-10-24] MEDS: NS + KCL 20 MEQ 1,000 ML IV SCH ×2 (02:07→07:05)
[2016-10-24 04:57] LABS: ADD SCAN DIFF NO
[2016-10-24 04:58] LABS: BASOPHILS % 0.3 % (0.0-2.0); EOSINOPHILS % 0.3 % (0.0-7.0); HEMATOCRIT 36.3 % (42.0-52.0); HEMOGLOBIN 12.1 g/dl (14.0-18.0); LYMPHOCYTES # 2.6 10^3/ul (0.8-2.9); LYMPHOCYTES % 16.6 % (15.0-51.0); MEAN CORPUSCULAR HEMOGLOBIN 30.3 pg (29.0-33.0); MEAN CORPUSCULAR HGB CONC 33.3 g/dl (32.0-37.0); MEAN PLATELET VOLUME 9.5 fl (7.4-10.4); MONOCYTE # 1.2 10^3/ul (0.3-0.9); MONOCYTES % 7.5 % (0.0-11.0); NEUTROPHIL # 11.6 10^3/ul (1.6-7.5); NEUTROPHILS % 74.8 % (39.0-77.0); PLATELET COUNT 313 10^3/UL (140-415); RED BLOOD COUNT 3.99 10^6/ul (4.70-6.10); RED CELL DISTRIBUTION WIDTH 12.5 % (11.5-14.5); WHITE BLOOD COUNT 15.5 10^3/ul (4.8-10.8)
[2016-10-24 05:17] LABS: CALCIUM 8.5 mg/dl (8.4-10.2); CREATININE 0.69 mg/dl (0.61-1.24); MAGNESIUM 1.9 mg/dl (1.7-2.5); POTASSIUM 3.9 mmol/L (3.5-5.1)
[2016-10-24] MEDS: HYDROCODONE/APAP (10/325) TAB PO PRN (05:26)
[2016-10-24] MEDS: PIPER-TAZO 3.375 GM IV (PMX) 100 ML IVPB SCH ×3 (05:27→17:30)
[2016-10-24 08:16] VITALS: BP 139/89; RESP 20
[2016-10-24] MEDS: FAMOTIDINE 20 MG INJ IV SCH ×2 (09:05→20:50)
[2016-10-24] MEDS: DOCUSATE SODIUM 100 MG CAP PO SCH ×3 (09:05→20:50)
[2016-10-24] MEDS: NICOTINE (7 MG/24 HR) PATCH TRANSDERM SCH (09:05)
--- NOTE | 2016-10-24 10:09 | PN ---
Date/Time of Note Date/Time of Note DATE: 10/24/16 TIME: 10:07 Assessment/Plan Lines/Catheters IV Catheter Type (from Nrs): Peripheral IV Gomez in Place (from Nrsg): No Assessment/Plan Assessment/Plan 36-year-old male with gangrenous cholecystitis status post laparoscopic cholecystectomy and drain placement postop day #2 * Continue broad-spectrum intravenous antibiotics * Pain control, IV fluid hydration * Continue drain * Out of bed/incentive spirometry * Monitor labs * Possible d/c home in AM if continues to improve D/W nurse Subjective 24 Hr Interval Summary Feels better. Afebrile. Drain output 155 cc more serosanguinous. Exam/Review of Systems Vital Signs Vitals Vital Signs Date Time Temp Pulse Resp B/P Pulse Ox O2 Delivery O2 Flow Rate FiO2 10/24/16 08:16 97.6 89 20 139/89 94 10/23/16 04:01 Room Air 10/23/16 00:45 2.0 Intake and Output 10/23/16 10/23/16 10/24/16 15:00 23:00 07:00 Intake Total 100 ml 1700 ml 1950 ml Output Total 1860 ml 1690 ml Balance 100 ml -160 ml 260 ml Exam Free Text/Dictation GENERAL: Obese, awake, alert, oriented x 3. No acute distress. SKIN: No jaundice. HEENT: PERRLA, EOMI, No Scleral Icterus CARDIOVASCULAR: S1S2, regular rate and rhythm. No murmurs appreciated. RESPIRATORY: Clear to auscultation bilaterally. ABDOMEN: Obese, soft, bowel sounds present, appropriate incisional tenderness to palpation INCISIONS: clean, dry, intact EXTREMITIES: Free range of motion x 4. No cyanosis, edema, or clubbing. Results Result Diagram: 10/24/16 0443 10/24/16 0443 HILARY CANADA MD Oct 24, 2016 10:08
[2016-10-24] MEDS ORDERED: BISACODYL (EC) 5 MG TAB PO ONE (10:30)
[2016-10-24] MEDS: HYDROCODONE/APAP (5/325) TAB PO PRN ×2 (11:55→17:30)
--- NOTE | 2016-10-24 12:10 | PN ---
Date/Time of Note Date/Time of Note DATE: 10/24/16 TIME: 12:06 Assessment/Plan VTE Prophylaxis VTE Prophylaxis Intervention: ambulation, SCD's Lines/Catheters IV [facility] Saline Lock Urinary Cath still in place: No Assessment/Plan Chief Complaint/Hosp Course 1. Right-sided abdominal pain, secondary to gangrenous cholecystitis. -Status post lap ramy with drain placed on 10/22/2069 -Continue antiemetics, analgesics and broad-spectrum IV antibiotics. -Diet as tolerated -Ambulation and incentive spirometry. 2. Leukocytosis, this is likely secondary to #1. Improving. -Continue antibiotics -Await final cultures-so far negative. 3. Bipolar disorder. No present issues. 4. Obesity. A1c and lipid panel stable -Weight reduction advised Prophylaxis: SCDs/Pepcid Plan: Patient still with WALLACE drain in place. As per surgical recommendation, will keep patient in-house today and will discharge in a.m. on oral antibiotic if stable. Case discussed with . Problems: Subjective 24 Hr Interval Summary Free Text/Dictation Patient ablating in room, denies any nausea, vomiting or abdominal pain. Has been tolerating diet. Remains afebrile. Exam/Review of Systems Vital Signs Vitals Vital Signs Date Time Temp Pulse Resp B/P Pulse Ox O2 Delivery O2 Flow Rate FiO2 10/24/16 08:16 97.6 89 20 139/89 94 10/23/16 04:01 Room Air 10/23/16 00:45 2.0 Intake and Output 10/23/16 10/23/16 10/24/16 15:00 23:00 07:00 Intake Total 100 ml 1700 ml 1950 ml Output Total 1860 ml 1690 ml Balance 100 ml -160 ml 260 ml Exam General: Obese male not in any acute distress . HEENT: Normocephalic, Atraumatic, No laceration or hematoma; Eyes: PEERL, Conjunctiva clear, Anicteric sclera Neck: Supple without any lymphadenopathy, nontender, no JVD, no carotid bruits, trachea midline, no thyromegaly Cardiac: S1, S2 auscultated, regular rhythm and rate, no mumurs or gallop Pulmonary: Normal respiratory effort. Chest clear to auscultation bilaterally, no adventitious breath sounds GI: Laparoscopic incision site intact. WALLACE draining dark sanguinous in minimal amount. . Soft, non tender, non- distended, no masses, no rebound tenderness or guarding. Bowel sounds active on all four quadrants Genitourinary: Deferred Extremities: No cyanosis, clubbing, or edema. Pulses [2+] bilaterally. Full ROM on all four extremities. No focal weakness appreciated. Neurologic: Alert to person, place, time, and situation. Affect appropriate, intact sensation. Skin: Clean,dry, and intact. No ecchymosis, no rashes, or lesions Psych: Negative for suicidal ideation, hallucination, confusion and agitation. Results Result Diagram: 10/24/16 0443 10/24/16 0443 Results 24 hrs Laboratory Tests Test 10/24/16 04:43 White Blood Count 15.5 H Red Blood Count 3.99 L Hemoglobin 12.1 L Hematocrit 36.3 L Mean Corpuscular Volume 91.0 Mean Corpuscular Hemoglobin 30.3 Mean Corpuscular Hemoglobin Concent 33.3 Red Cell Distribution Width 12.5 Platelet Count 313 Mean Platelet Volume 9.5 Neutrophils % 74.8 Lymphocytes % 16.6 Monocytes % 7.5 Eosinophils % 0.3 Basophils % 0.3 Neutrophils # 11.6 H Lymphocytes # 2.6 Monocytes # 1.2 H Eosinophils # 0.0 Basophils # 0.0 Nucleated Red Blood Cells # 0.0 Sodium Level 137 Potassium Level 3.9 Chloride Level 100 Carbon Dioxide Level 24 Anion Gap 17 H Blood Urea Nitrogen 7 Creatinine 0.69 Glucose Level 87 Calcium Level 8.5 Magnesium Level 1.9 Medications Medications Current Medications Hydralazine HCl (Apresoline) 10 mg Q6H PRN IV ELEVATED BLOOD PRESSURE Last administered on 10/21/16 12:50; Admin Dose 10 MG; Start 10/21/16 at 12:30 Ondansetron HCl (Zofran Inj) 4 mg Q4H PRN IV NAUSEA AND/OR VOMITING; Start at 12:30 Acetaminophen (Tylenol Supp) 650 mg Q6H PRN [place] PAIN LEVEL 1-3 OR FEVER; Start 10/21/16 at 12:30 Morphine Sulfate (morphine) 2 mg Q4H PRN IV SEVERE PAIN LEVEL 7-10; Start 10/21 at 12:30 Famotidine (Pepcid Iv) 20 mg Q12 IV Last administered on 10/24/16 09:05; Admin Dose 20 MG; Start 10/21/16 at 21:00 Hydromorphone HCl 0.5 mg 0.5 mg Q4H PRN IV PAIN Last administered on 10/23/16 13:22; Admin Dose 0.5 MG; Start 10/21/16 at 14:00 Potassium Chloride/Sodium Chloride (NS-KCl 20 Meq) 1,000 ml @ 100 mls/hr Q10H IV Last administered on 10/24/16 02:07; Admin Dose 100 MLS/HR; Start 10/21/16 at 19:00 Nicotine 1 patch 1 patch DAILY TRANSDERM Last administered on 10/24/16 09:05; Admin Dose 1 PATCH; Start 10/21/16 at 20:00 Piperacillin Sod/ Tazobactam Sod (Zosyn 3.375gm/ 100 ml (Pmx)) 100 ml @ 200 mls /hr Q6 IVPB Last administered on 10/24/16 11:55; Admin Dose 200 MLS/HR; Start 10/22/16 at 12:00 Hydromorphone HCl (Dilaudid) 1 mg Q4 PRN IV PAIN LEVEL 6-10 Last administered on 10/23/16 06:18; Admin Dose 1 MG; Start 10/22/16 at 19:30 Acetaminophen/ Hydrocodone Bitart ([place] (10/325)) 1 tab Q6H PRN PO PAIN Last administered on 10/24/16 05:26; Admin Dose 1 TAB; Start 10/22/16 at 19:30 Acetaminophen (Tylenol Tab) 650 mg Q6H PRN PO PAIN AND OR ELEVATED TEMP; Start 10/22/16 at 19:30 Ondansetron HCl (Zofran Inj) 4 mg Q6H PRN IV NAUSEA AND/OR VOMITING; Start at 19:30 Zolpidem Tartrate (Ambien) 10 mg HS PRN PO INSOMNIA Last administered on 23:11; Admin Dose 10 MG; Start 10/22/16 at 22:00 Docusate Sodium (Colace) 100 mg TID PO ; Start 10/24/16 at 13:00 Acetaminophen/ Hydrocodone Bitart ([place] (5/325)) 2 tab Q4H PRN PO MODERATE PAIN LEVEL 4-6 Last administered on 10/24/16t 11:55; Admin Dose 2 TAB; Start at 10:30 ROBERTA MORRELL NP Oct 24, 2016 12:10
[2016-10-24 19:14] VITALS: BP 164/99; RESP 18
[2016-10-24] MEDS: ZOLPIDEM 5 MG TAB PO PRN (22:39)
[2016-10-25] MEDS: PIPER-TAZO 3.375 GM IV (PMX) 100 ML IVPB SCH ×3 (00:32→11:49)
[2016-10-25 02:00] VITALS: BP 120/68; PULSE 96; RESP 19
[2016-10-25] MEDS: HYDROCODONE/APAP (5/325) TAB PO PRN ×2 (04:39→10:42)
[2016-10-25 05:50] LABS: BASOPHILS % 0.3 % (0.0-2.0); EOSINOPHILS # 0.1 10^3/ul (0.0-0.5); HEMATOCRIT 36.1 % (42.0-52.0); HEMOGLOBIN 12.5 g/dl (14.0-18.0); LYMPHOCYTES # 2.3 10^3/ul (0.8-2.9); LYMPHOCYTES % 18.1 % (15.0-51.0); MEAN CORPUSCULAR HGB CONC 34.6 g/dl (32.0-37.0); MEAN CORPUSCULAR VOLUME 89.6 fl (82.0-101.0); MEAN PLATELET VOLUME 9.3 fl (7.4-10.4); MONOCYTE # 0.9 10^3/ul (0.3-0.9); MONOCYTES % 6.8 % (0.0-11.0); NEUTROPHIL # 9.2 10^3/ul (1.6-7.5); NEUTROPHILS % 72.9 % (39.0-77.0); PLATELET COUNT 357 10^3/UL (140-415); RED BLOOD COUNT 4.03 10^6/ul (4.70-6.10); WHITE BLOOD COUNT 12.5 10^3/ul (4.8-10.8)
[2016-10-25 06:33] LABS: CALCIUM 8.5 mg/dl (8.4-10.2); CREATININE 0.7 mg/dl (0.61-1.24); POTASSIUM 3.6 mmol/L (3.5-5.1)
[2016-10-25 07:58] VITALS: BP 142/82; RESP 16
[2016-10-25] MEDS: DOCUSATE SODIUM 100 MG CAP PO SCH ×2 (08:40→13:00)
[2016-10-25] MEDS: FAMOTIDINE 20 MG INJ IV SCH (08:40)
[2016-10-25] MEDS: NICOTINE (7 MG/24 HR) PATCH TRANSDERM SCH (08:41)
--- NOTE | 2016-10-25 10:06 | PN ---
Date/Time of Note Date/Time of Note DATE: 10/25/16 TIME: 10:04 Assessment/Plan Lines/Catheters IV Catheter Type (from Nrsg): Saline Lock Gomez in Place (from Nrsg): No Assessment/Plan Assessment/Plan 36-year-old male with gangrenous cholecystitis status post laparoscopic cholecystectomy and drain placement postop day #3 * Drain removed without complication * Surgically stable for d/c home on PO Abx and Pain control when medically cleared * F/U in office in 1 week D/W nurse Subjective 24 Hr Interval Summary Doing well and without complaints. Drain output 40cc serosanguinous. Afebrile. Exam/Review of Systems Vital Signs Vitals Vital Signs Date Time Temp Pulse Resp B/P Pulse Ox O2 Delivery O2 Flow Rate FiO2 10/25/16 07:58 98.0 81 16 142/82 100 10/25/16 02:00 Room Air 10/23/16 00:45 2.0 Intake and Output 10/24/16 10/24/16 10/25/16 15:00 23:00 07:00 Intake Total 700 ml 1700 ml 1300 ml Output Total 2320 ml 1120 ml Balance 700 ml -620 ml 180 ml Exam Free Text/Dictation GENERAL: Obese, awake, alert, oriented x 3. No acute distress. SKIN: No jaundice. HEENT: PERRLA, EOMI, No Scleral Icterus CARDIOVASCULAR: S1S2, regular rate and rhythm. No murmurs appreciated. RESPIRATORY: Clear to auscultation bilaterally. ABDOMEN: Obese, soft, bowel sounds present, appropriate incisional tenderness to palpation INCISIONS: clean, dry, intact EXTREMITIES: Free range of motion x 4. No cyanosis, edema, or clubbing. Results Result Diagram: 10/25/16 0513 10/25/16 0513 HILARY CANADA MD Oct 25, 2016 10:06
[2016-10-25] MEDS ORDERED: METR500T14 PO (10:21)
[2016-10-25] MEDS ORDERED: CIPR500T4 PO (10:21)
[2016-10-25] MEDS ORDERED: HYDR-906 PO (10:22)
--- NOTE | 2016-10-25 10:23 | PDOCDIS ---
Discharge Instructions CONDITION Patient Condition: Good HOME CARE INSTRUCTIONS: Diet Instructions: Modified FatSpecial Diet: NPO ACTIVITY: Activity Restrictions: Slowly Increase Activity Rest between Activity Avoid heavy lifting Bathing Restrictions: Shower FOLLOW UP/APPOINTMENTS Follow-up Plan F/U WITH DR CANADA OF SURGERY IN 1-2 WEEKS AND WITH YOUR PCP IN 1-2 WEEKS YANET BRYANT Oct 25, 2016 10:23
[2016-10-25] MEDS ORDERED: MAGNESIUM HYDROXIDE 30ML CUP PO ONE (10:30)
--- NOTE | 2016-10-25 12:44 | DS ---
Date/Time of Note Date/Time of Note DATE: 10/25/16 TIME: 12:41 Discharge Summary Admission/Discharge Info Admit Date/Time Oct 21, 2016 at 12:08 Discharge Date/Time October 25, 2016 Discharge Diagnosis 1. Right-sided abdominal pain, secondary to gangrenous cholecystitis. -Status post lap ramy with drain placed on 10/22/2016, removed today -DC with p.o. antibiotics and pain medications 2. Leukocytosis secondary to above improving- -DC with p.o. antibiotics -Cultures are negative 3. Bipolar disorder. No present issues. 4. Obesity. A1c and lipid panel stable -Weight reduction advised Hospital Course Patient is a 36-year-old obese male with a past medical history of active smoking, bipolar disorder, anxiety, previous hospitalization in psychiatric unit, who initially presented to [facility] with complaints of worsening right-sided abdominal pain associated with nausea and multiple episodes of nonbilious, nonbloody vomiting. Patient was found to have gangrenous cholecystitis and underwent laparoscopic corticectomy with drain placement on 10/22/2016. Patient was put on antibiotics of note cultures were negative. Patient's drain was removed on day of discharge patient was felt to be stable for DC per surgery. On day of discharge patient's vitals, labs and physical exam stable, he had no acute complaints his questions were answered. Home Meds Active Scripts Hydrocodone/Acetaminophen ([place] 5-325 Tablet) 1 Each Tablet, 1 EACH PO Q4 for PAIN, #40 TAB Prov:YANET BRYANT 10/25/16 Metronidazole* (Metronidazole*) 500 Mg Tablet, 500 MG PO TID for 7 Days, #21 TAB Prov:YANET BRYANT 10/25/16 Ciprofloxacin Hcl* (Ciprofloxacin Hcl*) 500 Mg Tablet, 500 MG PO BID for 7 Days , #14 TAB Prov:YANET BRYANT 10/25/16 Follow-up Plan Follow up with surgery and PCP 1-2 weeks Primary Care Provider Hellen Hall Time spent on discharge: > 30 minutes YANET BRYANT Oct 25, 2016 12:44
== END 2016-10-25 13:40 | disposition home or self-care (01) | DRG 419 ==
LOC: MS1 12:08
PROVIDERS: ADMIT Internal Medicine; ATTEND Internal Medicine
PROC: 0FT44ZZ Resection of Gallbladder, Percutaneous Endoscopic Approach (ICD-10-PCS; principal; 2016-10-22 19:00)
DX: K80.12 Calculus of gallbladder with acute and chronic cholecystitis without obstruction (principal); E83.42 Hypomagnesemia; I10 Essential (primary) hypertension; K66.0 Peritoneal adhesions (postprocedural) (postinfection); F31.74 Bipolar disorder, in full remission, most recent episode manic; F17.210 Nicotine dependence, cigarettes, uncomplicated; E87.6 Hypokalemia; E66.9 Obesity, unspecified; Z68.36 Body mass index [BMI] 36.0-36.9, adult; F41.9 Anxiety disorder, unspecified
CPT/HCPCS: 71010; 80048; 80053; 80061; 80076; 81001; 83036; 83735; 84100; 84443; 85025; 85610; 85730; 87040; 87070; 87086; 88304; 93005; 97116; 97162; 97530; J0360; J1170; J2060; J2175; J2250; J2270; J2405; J2543; J2710; J2795; J3010; J3475; J3480; J7030